=== PATIENT | male | born 1970 | race Caucasian/White ===

== ENCOUNTER → 2021-03-14 12:37 | Outpatient (CLI) | payer OTHER, SELFPAY | PROVIDERS: PCP Nurse Practitioner Family; Visit Provider Nurse Practitioner Family | DX: L08.9 Local infection of the skin and subcutaneous tissue, unspecified (principal) | CPT/HCPCS: 87070; 87077; 87205 ==

== ENCOUNTER 2021-03-14 12:39 | Emergency (ER) | payer OTHER, SELFPAY ==
[2021-03-14 12:53] VITALS: BP 151/81; PULSE 95; RESP 18; TEMP 37; O2SAT 97; BMI 34.2
--- NOTE | 2021-03-14 13:34 | DI.RAD.S_ITS ---
PROCEDURE: XR FINGER RT MIN 2V INDICATIONS: infection right thumb TECHNIQUE: AP hand, 2 views of the 1st digit acquired. COMPARISON: None. FINDINGS: Bones: No acute fractures or dislocations. There is indistinct lucency within the tuft of the 1st distal phalanx with small cortical erosions suggestive of osteomyelitis. There is deformity of the 5th metacarpal consistent with sequelae of an old healed fracture. Hook osteophytes are demonstrated within the 2nd through 4th metacarpals. Soft tissues: There is soft tissue swelling of the 1st digit distally. No suspicious soft tissue calcifications. IMPRESSION: 1. Small bony erosions suggestive of osteomyelitis within the 1st distal phalanx. Dictated by: Kamlesh Lees M.D. on 03/14/2021 at 13:21 Approved by: aKmlesh Lees M.D. on 03/14/2021 at 13:23
--- NOTE | 2021-03-14 13:44 | DI.MRI.S_ITS ---
PROCEDURE: MR HAND RT WO/W CON INDICATIONS: possible thumb abcess TECHNIQUE: Noncontrast coronal T1 spin echo and T2 fast spin echo with fat saturation, axial proton density fast spin echo and T2 fast spin echo with fat saturation, axial T1 spin echo with fat saturation, sagittal T1 spin echo and STIR through the hand and fingers. Post-contrast axial, coronal, and sagittal T1 spin echo through the hand and fingers. COMPARISON: [facility], CR, XR FINGER RT MIN 2V, 03/14/2021, 13:57. FINDINGS: Image quality: Excellent. Bones: There is abnormal bone marrow edema and enhancement within the distal aspect of the 1st distal phalanx with associated mild cortical erosion along the tuft. There is also associated periosteal reaction. The findings are consistent with osteomyelitis. No extension to the interphalangeal joint or joint effusions to suggest septic arthritis. There is a small region of cystic change and mild enhancement within the distal radial aspect of the scaphoid suggestive of an intraosseous ganglion cyst or small bone contusion. No overlying cortical erosions. Remaining visualized osseous structures demonstrate no abnormal edema or enhancement. Soft tissues: There is soft tissue swelling with subcutaneous edema and skin thickening in the 1st digit distally. There is a small peripherally enhancing fluid collection within the distal 1st digit adjacent to the tuft of the distal phalanx. This measures approximately 0.9 x 0.4 x 0.4 cm and abuts the cortex of the distal phalanx. There is extension dorsally to a small loculated component in the nail bed which measures approximately 0.9 cm in transverse dimension by approximately 1.1 cm in longitudinal dimension. Visualized muscles demonstrate normal bulk and internal signal. No intramuscular masses identified. Visualized flexor and extensor tendons appear intact. No abnormal tenosynovial fluid. IMPRESSION: 1. Abnormal bone marrow edema and enhancement within the 1st distal phalanx with cortical erosions distally consistent with osteomyelitis. 2. Soft tissue swelling with edema and enhancement in the 1st digit distally consistent with cellulitis. 3. Loculated peripherally enhancing fluid collection within the 1st digit distally as described consistent with an abscess. There is associated extension along the 1st distal phalanx as well as a dorsal component beneath the nail bed. Dictated by: Kamlesh Lees M.D. on 03/14/2021 at 16:07 Approved by: Kamlesh Lees M.D. on 03/14/2021 at 16:17
--- NOTE | 2021-03-14 13:44 | ED.UPPEXIN ---
HPI - Extremity Injury (Upper) General Chief Complaint: Extremity Injury, Upper Stated Complaint: infection in right thumb, sent from [facility] Time Seen by Provider: 03/14/21 13:42 Source: patient Mode of arrival: Ambulatory Limitations: no limitations History of Present Illness HPI narrative: Patient is a 51-year-old male presents with right thumb pain. He has been treated with 2 rounds of antibiotics since February 26. He was previously on Keflex 500 mg 3 times a day as and switched to doxycycline on March 08. He initially injured it, proximal side of the nail near the cuticle. 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 He has not had any fever or chills. He has actually noticed significant improvement since starting the doxycycline however for the last couple of days it has leveled off. He is quite tender the distal tip. Related Data Home Medications Medication Instructions Recorded Confirmed cephalexin 500 mg capsule 500 mg PO TID 03/08/21 03/08/21 naproxen 500 mg tablet 500 mg PO BID 03/08/21 03/08/21 Previous Rx's Medication Instructions Recorded doxycycline hyclate 100 mg capsule 100 mg PO BID #14 cap 03/09/21 Allergies Allergy/AdvReac Type Severity Reaction Status Date / Time No Known Drug Allergies Allergy Verified 03/14/21 12:53 Review of Systems Review of Systems Narrative: GENERAL: Denies chills,fever HEENT: Denies throat pain RESPIRATORY: Denies dyspnea, cough, wheezing CARDIOVASCULAR: Denies chest pain, palpitations GASTROINTESTINAL: Denies nausea, vomiting MUSCULOSKELETAL: See HPI SKIN: No rash, no laceration, no pruritus NEUROLOGIC: Denies weakness, dizziness, headache, numbness 8 point review of systems is negative except for those stated above and HPI Patient History Social History Smoking Status: Current every day smoker Smoking Status: Current every day smoker alcohol intake frequency: 3 or more drinks per day Substance Use Type: does not use Exam Initial Vital Signs Initial Vital Signs: Vital Signs Temperature 98.6 F 03/14/21 12:53 Pulse Rate 95 H 03/14/21 12:53 Respiratory Rate 18 03/14/21 12:53 Blood Pressure 151/81 H 03/14/21 12:53 Pulse Oximetry 97 03/14/21 12:53 GENERAL: Well-appearing, well-nourished and in no acute distress. CARDIOVASCULAR: peripheral pulses in tact, cap refill <2 sec RESPIRATORY: No respiratory distress, speaks in full sentences without difficulty EXTREMITIES: Normal range of motion, no clubbing or edema. Neurovascularly intact NEUROLOGICAL: Cranial nerves II through XII grossly intact. Normal gait and speech. Right thumb mild swelling at the distal tip. Able to flex and extend no tenderness over thumb, SKIN: Right thumb is slightly swollen extremely tender at the distal tip. Very minimal erythema and fact the redness seems to be improving. However quite tender. Procedures Abscess I/D I&D #1: Side (if applicable): right Local Anesthetic: lidocaine 1% Amount of anesthesia used (mL): 4 Irrigation: No Nerve Block Nerve Block 1: Local Anesthetic: lidocaine 1% Amount of anesthesia used (mL): 4 Side: right Nerve Blocks: digital Procedure Successful: Yes Patient Tolerated Procedure: Well Complications: none Course Orders Ordered: Discontinued Medications Ceftriaxone Sodium 2,000 mg/ (Sodium Chloride) 100 mls @ 200 mls/hr IV NOW ONE Stop: 03/14/21 18:12 Last Infusion: 03/14/21 18:55 Dose: 0 mls/hr Documented by: ROSA ELENA Admin: 03/14/21 18:23 Dose: 200 mls/hr Documented by: ROSA ELENA Vancomycin HCl/Dextrose (Vancomycin) 1,500 mg in 300 mls @ 200 mls/hr IV NOW ONE Stop: 03/14/21 19:40 Last Infusion: 03/14/21 20:30 Dose: 0 mls/hr Documented by: Admin: 03/14/21 18:59 Dose: 200 mls/hr Documented by: ROSA ELENA Lidocaine HCl (Lidocaine 1% (Pf)) 2 ml SUBCUT NOW ONE Stop: 03/14/21 17:40 Last Admin: 03/14/21 18:23 Dose: 2 ml Documented by: ROSA ELENA Vital Signs Vital signs: Vital Signs - 8 hr 03/14/21 12:53 03/14/21 18:45 03/14/21 19:00 Temperature 98.6 F Pulse Rate 95 H 77 72 Respiratory Rate 18 20 Blood Pressure 151/81 H 131/85 Pulse Oximetry 97 97 97 MDM - Extremity Injury (Upper) Lab Data Result diagrams: 03/14/21 13:51 03/14/21 13:51 Labs: Lab Results 03/14/21 03/14/21 03/14/21 Range/Units 13:51 13:51 13:51 WBC 6.4 (4.5-11.0) X10^3/uL RBC 4.33 L (4.5-5.9) X10^6/uL Hgb 14.8 (13.5-17.5) g/dL Hct 41.6 (41-53) % MCV 96.2 (80-100) fL MCH 34.1 H (26-34) PG MCHC 35.5 (30-36) % RDW 12.7 (11.6-14.8) % Plt Count 237 (150-400) X10^3/uL Neut % (Auto) 62.8 (50-75) % Lymph % (Auto) 24.7 L (25-40) % [place] % (Auto) 8.2 (3-14) % Eos % (Auto) 3.3 (2-4) % Baso % (Auto) 1.0 (0-2) % Neut # (Auto) 4000 (5196-2605) /uL Lymph # (Auto) 1600 (6760-4745) /uL [place] # (Auto) 500 (0-900) /uL Eos # (Auto) 200 (0-450) /uL Baso # (Auto) 100 (0-100) /uL ESR (0-15) MM/HR PT 11.3 (10.1-12.7) SECONDS INR 1.0 (0.9-1.3) APTT 31 (26.4-36.2) SECONDS Sodium 138 (137-145) mmol/L Potassium 4.0 (3.4-5.1) mmol/L Chloride 105 (98-107) mmol/L Carbon Dioxide 24 (22-32) mmol/L BUN 15 (9-20) mg/dL Creatinine 1.00 (0.66-1.25) mg/dL Estimated GFR > 60.0 (>60) mL/min BUN/Creatinine Ratio 15.0 (6-22) Glucose 90 (70-100) mg/dL Lactate (0.7-2.1) mmol/L Calcium 9.3 (8.4-10.2) mg/dL Total Bilirubin 0.6 (0.2-1.3) mg/dL AST 26 (17-59) IU/L ALT 17 (<50) IU/L Alkaline Phosphatase 61 (38-126) U/L C-Reactive Protein (<1.0) mg/dL Total Protein 7.5 (6.3-8.2) g/dL Albumin 4.5 (3.5-5.0) g/dL Globulin 3.0 (1.7-4.1) g/dL Albumin/Globulin Ratio 1.5 (1.0-2.8) Lipase 35 (23-300) U/L Procalcitonin 0.04 (<0.5) ng/mL 03/14/21 03/14/21 03/14/21 Range/Units 13:51 13:51 13:51 WBC (4.5-11.0) X10^3/uL RBC (4.5-5.9) X10^6/uL Hgb (13.5-17.5) g/dL Hct (41-53) % MCV (80-100) fL MCH (26-34) PG MCHC (30-36) % RDW (11.6-14.8) % Plt Count (150-400) X10^3/uL Neut % (Auto) (50-75) % Lymph % (Auto) (25-40) % [place] % (Auto) (3-14) % Eos % (Auto) (2-4) % Baso % (Auto) (0-2) % Neut # (Auto) (8487-6335) /uL Lymph # (Auto) (1086-9005) /uL [place] # (Auto) (0-900) /uL Eos # (Auto) (0-450) /uL Baso # (Auto) (0-100) /uL ESR 1 (0-15) MM/HR PT (10.1-12.7) SECONDS INR (0.9-1.3) APTT (26.4-36.2) SECONDS Sodium (137-145) mmol/L Potassium (3.4-5.1) mmol/L Chloride (98-107) mmol/L Carbon Dioxide (22-32) mmol/L BUN (9-20) mg/dL Creatinine (0.66-1.25) mg/dL Estimated GFR (>60) mL/min BUN/Creatinine Ratio (6-22) Glucose (70-100) mg/dL Lactate 0.7 (0.7-2.1) mmol/L Calcium (8.4-10.2) mg/dL Total Bilirubin (0.2-1.3) mg/dL AST (17-59) IU/L ALT (<50) IU/L Alkaline Phosphatase (38-126) U/L C-Reactive Protein < 0.5 (<1.0) mg/dL Total Protein (6.3-8.2) g/dL Albumin (3.5-5.0) g/dL Globulin (1.7-4.1) g/dL Albumin/Globulin Ratio (1.0-2.8) Lipase (23-300) U/L Procalcitonin (<0.5) ng/mL Imaging Data Extremity x-ray #1: Radiologist's Impression: PROCEDURE:? XR FINGER RT MIN 2V ? INDICATIONS:? infection right thumb ? TECHNIQUE:? AP hand, 2 views of the 1st digit acquired.? ? COMPARISON:? None. ? FINDINGS:? ? Bones:? No acute fractures or dislocations.? There is indistinct lucency within the tuft of the 1st distal phalanx with small cortical erosions suggestive of osteomyelitis.? There is deformity of the 5th metacarpal consistent with sequelae of an old healed fracture.? Hook osteophytes are demonstrated within the 2nd through 4th metacarpals. ? Soft tissues:? There is soft tissue swelling of the 1st digit distally.? No suspicious soft tissue calcifications.? ? IMPRESSION:? ? 1. Small bony erosions suggestive of osteomyelitis within the 1st distal phalanx.? ? ? Dictated by: Kamlesh Lees M.D. on 03/14/2021 at 13:21 ? ? Approved by: Kamlesh Lees M.D. on 03/14/2021 at 13:23 ? MR hand: Radiologist's Impression: PROCEDURE:? MR HAND RT WO/W CON ? INDICATIONS:? possible thumb abcess ? TECHNIQUE:? Noncontrast coronal T1 spin echo and T2 fast spin echo with fat saturation, axial proton density fast spin echo and T2 fast spin echo with fat saturation, axial T1 spin echo with fat saturation, sagittal T1 spin echo and STIR through the hand and fingers.? Post-contrast axial, coronal, and sagittal T1 spin echo through the hand and fingers.? ? COMPARISON:? [facility], CR, XR FINGER RT MIN 2V, 03/14/2021, 13:57. ? FINDINGS:? Image quality:? Excellent.? ? Bones:? There is abnormal bone marrow edema and enhancement within the distal aspect of the 1st distal phalanx with associated mild cortical erosion along the tuft.? There is also associated periosteal reaction.? The findings are consistent with osteomyelitis.? No extension to the interphalangeal joint or joint effusions to suggest septic arthritis.? There is a small region of cystic change and mild enhancement within the distal radial aspect of the scaphoid suggestive of an intraosseous ganglion cyst or small bone contusion.? No overlying cortical erosions.? Remaining visualized osseous structures demonstrate no abnormal edema or enhancement. ? Soft tissues:? There is soft tissue swelling with subcutaneous edema and skin thickening in the 1st digit distally.? There is a small peripherally enhancing fluid collection within the distal 1st digit adjacent to the tuft of the distal phalanx.? This measures approximately 0.9 x 0.4 x 0.4 cm and abuts the cortex of the distal phalanx.? There is extension dorsally to a small loculated component in the nail bed which measures approximately 0.9 cm in transverse dimension by approximately 1.1 cm in longitudinal dimension.? Visualized muscles demonstrate normal bulk and internal signal.? No intramuscular masses identified.? Visualized flexor and extensor tendons appear intact.? No abnormal tenosynovial fluid.? ? IMPRESSION:? ? 1. Abnormal bone marrow edema and enhancement within the 1st distal phalanx with cortical erosions distally consistent with osteomyelitis. ? 2. Soft tissue swelling with edema and enhancement in the 1st digit distally consistent with cellulitis. ? 3. Loculated peripherally enhancing fluid collection within the 1st digit distally as described consistent with an abscess.? There is associated extension along the 1st distal phalanx as well as a dorsal component beneath the nail bed.? ? ? Dictated by: Kamlesh Lees M.D. on 03/14/2021 at 16:07 ? ? Approved by: Kamlesh Lees M.D. on 03/14/2021 at 16:17 MDM Narrative Medical decision making narrative: Patient's blood work is overall reassuring. His exam he is tender very distal tip but no significant erythema no decreased range of motion. MRI does show osteomyelitis and very small fluid collection. She 1729 Dr. [facility] has been updated on MRI results with truncal clinical symptoms. At this time he states patient needs IV antibiotics and infectious disease consult. 1809-Dr. Ballard patient's PCP has been updated on patient's symptoms and test results. At this time she agrees to help arrange outpatient follow-up. He overall does not meet admission criteria and appears well. He is given vancomycin and Rocephin in the emergency department until cultures have returned. The culture however is from the nail bed not from the distal tip. There was no fluid or drainage from the distal tip. However his pain did improve. Patient does still have 3 days of doxycycline Discharge Plan Departure Patient Disposition: Home Clinical Impression: Abscess, Osteomyelitis Activity Restrictions/Additional Instructions: *You have been diagnosed with osteomyelitis *What to do: You will need IV antibiotics for about [address] Ballard will help arrange this for you through the infusion clinic. Until then please continue her doxycycline. She should be in touch with you on Tuesday *Continue to take medications as directed *Follow up with your primary care provider in 2-3 days *Return to ER if you should have increasing redness, fever, pain or any new, worsening or concerning symptoms Prescriptions: No Action naproxen 500 mg tablet 500 mg PO BID 0RF cephalexin 500 mg capsule 500 mg PO TID 0RF doxycycline hyclate 100 mg capsule 100 mg PO BID Qty: 14 0RF Referrals: Dionna Oh ARNP [Primary Care Provider] - Bre Ballard MD [Physician] -
[2021-03-14 14:04] LABS: Add Manual Diff / Slide Review NO; Basophils Absolute Auto 100 /uL (0-100); Eosinophils Absolute Auto 200 /uL (0-450); Eosinophils Percent Auto 3.3 % (2-4); Hematocrit 41.6 % (41-53); Hemoglobin 14.8 g/dL (13.5-17.5); Lymphocytes Absolute Auto 1600 /uL (1100-4500); Lymphocytes Percent Auto 24.7 % (25-40); Mean Corpuscular HGB Conc 35.5 % (30-36); Mean Corpuscular Hemoglobin 34.1 PG (26-34); Mean Corpuscular Volume 96.2 fL (80-100); Monocytes Absolute Auto 500 /uL (0-900); Monocytes Percent Auto 8.2 % (3-14); Neutrophils Absolute Auto 4000 /uL (1500-7000); Neutrophils Percent Auto 62.8 % (50-75); Platelet Count 237 X10^3/uL (150-400); Red Blood Cell Count 4.33 X10^6/uL (4.5-5.9); Red Cell Distribution Width 12.7 % (11.6-14.8); White Blood Cell Count 6.4 X10^3/uL (4.5-11.0)
[2021-03-14 14:15] LABS: Prothrombin Time 11.3 SECONDS (10.1-12.7)
[2021-03-14 14:17] LABS: PTT Partial Thromboplastin Tim 31 SECONDS (26.4-36.2)
[2021-03-14 14:19] LABS: Alanine Aminotransferase 17 IU/L (<50); Albumin 4.5 g/dL (3.5-5.0); Albumin Globulin Ratio 1.5 (1.0-2.8); Alkaline Phosphatase 61 U/L (38-126); Aspartate Aminotransferase 26 IU/L (17-59); Bilirubin Total 0.6 mg/dL (0.2-1.3); Blood Urea Nitrogen 15 mg/dL (9-20); Calcium 9.3 mg/dL (8.4-10.2); Carbon Dioxide 24 mmol/L (22-32); Chloride 105 mmol/L (98-107); Estimated Glomerular Filt Rate > 60.0 mL/min (>60); Glucose 90 mg/dL (70-100); HEMOLYSIS < 15 (0-50); Lipase 35 U/L (23-300); Sodium 138 mmol/L (137-145); Total Protein 7.5 g/dL (6.3-8.2)
[2021-03-14 14:20] LABS: Lactate (Lactic Acid) 0.7 mmol/L (0.7-2.1)
[2021-03-14 14:36] LABS: Procalcitonin 0.04 ng/mL (<0.5)
[2021-03-14 15:02] LABS: Erythrocyte Sedimentation Rate 1 MM/HR (0-15)
[2021-03-14 15:08] LABS: C-Reactive Protein Quant < 0.5 mg/dL (<1.0)
[2021-03-14] MEDS: LIDOCAINE 1% (PF) 2 ML SUBCUT (18:23)
[2021-03-14] MEDS: cefTRIAXone 2,000 MG in SODIUM CHLORIDE 0.9% 100 ML 200 ML IV (18:23)
[2021-03-14 18:45] VITALS: PULSE 77; O2SAT 97
[2021-03-14] MEDS: VANCOMYCIN 1,500 MG/300 ML PIGGYBACK 200 MG IV (18:59)
[2021-03-14 19:00] VITALS: BP 131/85; PULSE 72; RESP 20; O2SAT 97
[2021-03-14 19:30] VITALS: BP 133/80; PULSE 72; O2SAT 97
[2021-03-14 20:00] VITALS: BP 130/74; PULSE 75; O2SAT 96
== END 2021-03-14 20:37 | disposition home or self-care (01) ==
PROVIDERS: Emergency Provider Emergency Medicine; PCP Nurse Practitioner Family
DX: L02.511 Cutaneous abscess of right hand (principal); M86.9 Osteomyelitis, unspecified; L08.9 Local infection of the skin and subcutaneous tissue, unspecified
CPT/HCPCS: 10060; 36415; 64450; 73140; 73220; 80053; 83605; 83690; 84145; 85025; 85610; 85651; 85730; 86140; 87040; 87070; 87075; 87077; 87186; 87205; 96365; 96366; 96367; 99284; J0696

== ENCOUNTER → 2021-03-18 09:14 | Outpatient (CLI) | payer OTHER, SELFPAY ==
--- NOTE | 2021-03-18 | DI.RAD.S_ITS ---
PROCEDURE: FL GUIDED PICC PLACEMENT INDICATIONS: Osteomyelitis, unspecified COMPARISON: None. FINDINGS: PICC was placed by the intravenous therapy team from the left side. Fluoroscopic spot film demonstrates the tip of PICC projecting to the area of distal SVC IMPRESSION: Tip of PICC projects to the area of distal SVC Dictated by: Ritu Alfaro MD, PhD on 03/18/2021 at 11:10 Approved by: Ritu Alfaro MD, PhD on 03/18/2021 at 11:10
== END ==
PROVIDERS: PCP Student in an Organized Health Care Education/Training Program; Referring Provider Student in an Organized Health Care Education/Training Program; Visit Provider Student in an Organized Health Care Education/Training Program
DX: M86.9 Osteomyelitis, unspecified (principal); Z45.2 Encounter for adjustment and management of vascular access device
CPT/HCPCS: 36573

== ENCOUNTER → 2022-11-15 17:53 | Outpatient (CLI) | payer OTHER, SELFPAY ==
--- NOTE | 2022-11-15 | DI.RAD.S_ITS ---
PROCEDURE: XR FOOT LT MIN 3V INDICATIONS: foot pain TECHNIQUE: 3 views of the foot were acquired. COMPARISON: , , FOOT 3V LEFT, 05/01/2016, 12:27. FINDINGS: Bones: No fractures or dislocations. No suspicious bony lesions. Healed fractures of 3rd and 4th proximal phalanges. Hallux valgus. Plantar calcaneal enthesophyte. Soft tissues: No tibiotalar joint effusion. Achilles tendon appears normal. IMPRESSION: Hallux valgus. Dictated by: Lucian Andrade M.D. on 11/16/2022 at 14:04 Approved by: Lucian Andrade M.D. on 11/16/2022 at 14:04
--- NOTE | 2022-11-15 | DI.RAD.S_ITS ---
PROCEDURE: XR ANKLE LT MIN 3V INDICATIONS: foot pain TECHNIQUE: 3 views of the ankle were acquired. COMPARISON: None. FINDINGS: Bones: No fractures or dislocations. Ankle mortise is normally aligned. No suspicious bony lesions. Calcaneal enthesophyte. Soft tissues: Small tibiotalar joint effusion. Achilles tendon appears normal. IMPRESSION: Plantar calcaneal enthesophyte. Small ankle joint effusion. Dictated by: Lucian Andrade M.D. on 11/16/2022 at 14:03 Approved by: Lucian Andrade M.D. on 11/16/2022 at 14:04
--- NOTE | 2022-11-15 | DI.RAD.S_ITS ---
PROCEDURE: XR LUMBAR SPINE 2-3V INDICATIONS: Back pain TECHNIQUE: 3 views of the lumbar spine were acquired. COMPARISON: None. FINDINGS: Bones: 5 [id number] vertebrae are present. There is normal bony alignment. Degenerative endplate changes and loss of disc height throughout lumbar spine is seen more notably at L3-4 and L4-5 levels. No vertebral body compression fractures. No suspicious bony lesions. Soft tissues: Overlying bowel gas pattern is normal. No suspicious soft tissue calcifications. IMPRESSION: Degenerative disc disease throughout lumbar spine. No acute compression fracture or spondylolisthesis. Dictated by: Cruz Mcmanus M.D. on 11/16/2022 at 12:12 Approved by: Cruz Mcmanus M.D. on 11/16/2022 at 12:12
== END ==
LOC: RAD 17:55
PROVIDERS: PCP Student in an Organized Health Care Education/Training Program; Referring Provider Family Medicine; Visit Provider Family Medicine
DX: M51.16 Intervertebral disc disorders with radiculopathy, lumbar region (principal); M77.32 Calcaneal spur, left foot; M20.12 Hallux valgus (acquired), left foot; M25.472 Effusion, left ankle; M79.672 Pain in left foot; G89.29 Other chronic pain
CPT/HCPCS: 72100; 73610; 73630

== ENCOUNTER → 2022-11-24 07:14 | Outpatient (CLI) | payer OTHER, SELFPAY ==
--- NOTE | 2022-11-24 | DI.MRI.S_ITS ---
PROCEDURE: MR ANKLE LT WO CON INDICATIONS: Pain in left foot TECHNIQUE: Noncontrast sagittal T1 spin echo and T2 fast spin echo with fat saturation, axial proton density fast spin echo and T2 fast spin echo with fat saturation, coronal T1 spin echo and T2 fast spin echo with fat saturation through the ankle/hindfoot. COMPARISON: [facility], CR, XR ANKLE LT MIN 3V, 11/15/2022, 18:00. FINDINGS: Image quality: Excellent. Bones and joints: Osseous edema is seen within the included portion of the 3rd metatarsal. Increased signal seen within the 5th metatarsal that may be related to in imaging is fat suppression. No hindfoot coalitions. Small chronic osteochondral lesion at the medial talar dome measuring approximately 3 x 4 x 5 mm. Mild subchondral cystic changes are seen without disruption of the subchondral plate or a loose osteochondral fragment. Medial structures: The deep and superficial layers of the deltoid ligament appear intact. The spring ligament components are intact. The posterior tibialis, flexor digitorum longus, and flexor hallucis longus tendons are intact. A lobular ganglion cyst is seen at the posterior medial aspect of the ankle deep to the tarsal tunnel measuring 26 x 7 x 12 mm. The lesion is located adjacent to the posterior tibial neurovascular bundle without definite mass effect. Lateral structures: Remote prior low-grade sprains of the anterior talofibular ligament and the calcaneofibular ligament. The posterior talofibular ligament is intact. The anterior and posterior tibiofibular ligaments appear intact. The peroneus longus and brevis tendons demonstrate mild tenosynovitis. Ganglion cyst extending superiorly from the lateral sinus tarsi measures up to 21 x 7 x 18 mm. Anterior structures: The tibialis anterior, extensor hallucis longus, and extensor digitorum longus tendons appear intact. The dorsal talonavicular ligament appears intact. Posterior and plantar structures: Achilles tendon is intact. There is thickening the proximal plantar fascia with focal fluid signal intensity at the origin that is suspicious for partial intrasubstance tearing. Mild surrounding osseous and soft tissue edema. No calcaneal fracture is seen. No abductor digiti quinti muscle atrophy to suggest Mcdermott neuropathy. IMPRESSION: 1. Osseous edema is seen within the proximal 3rd metatarsal, possibly representing an osseous contusion or acute stress reaction, not completely imaged on this exam. 2. Small chronic osteochondral lesion at the medial talar dome measuring up to 5 mm with subchondral cystic changes. No disruption of the subchondral plate or loose osteochondral fragment. 3. Remote prior low-grade sprains of the anterior talofibular ligament and calcaneofibular ligament. 4. Mild peroneus brevis and longus tenosynovitis. 5. Low-grade partial tearing of the proximal plantar fascia at the origin superimposed on chronic fasciitis. 6. Lobular ganglion cyst at the posterior medial aspect of the ankle measuring up to 26 mm, located deep to the posterior tibial nerve without definite mass effect. Additional ganglion cyst extending superiorly from the lateral sinus tarsi measures up to 21 mm. Approved by: Andrew Bell M.D. on 11/24/2022 at 11:55
== END ==
PROVIDERS: PCP Family Medicine; Referring Provider Family Medicine; Visit Provider Family Medicine
DX: S93.492A Sprain of other ligament of left ankle, initial encounter (principal); S93.412A Sprain of calcaneofibular ligament of left ankle, initial encounter; M93.972 Osteochondropathy, unspecified, left ankle and foot; M65.872 Other synovitis and tenosynovitis, left ankle and foot; M72.2 Plantar fascial fibromatosis; M67.472 Ganglion, left ankle and foot; M79.672 Pain in left foot; R60.0 Localized edema
CPT/HCPCS: 73721

== ENCOUNTER → 2024-10-17 10:09 | Outpatient (CLI) | payer OTHER, SELFPAY ==
--- NOTE | 2024-10-17 10:11 | DI.RAD.S_ITS ---
PROCEDURE: XR KNEE LT 3V INDICATIONS: KNEE PAIN TECHNIQUE: 3 views of the knee were acquired. COMPARISON: None. FINDINGS: Bones: There are no osseous abnormalities. Joints: Severe patellofemoral and mild lateral tibial femoral degenerative change noted. There is mild lateral subluxation of the patella. Small effusion noted. Lateral subluxation of the patella Soft tissues: Calcification at the patellar tendon insertion on the tibial tuberosity may be stigmata of old trauma or inflammation IMPRESSION: Degeneration. Small effusion Lateral patellar subluxation . Dictated by: Antonio Reyna M.D. on 10/18/2024 at 11:46 Approved by: Antonio Reyna M.D. on 10/18/2024 at 11:48
== END ==
LOC: RAD 10:10
PROVIDERS: PCP Family Medicine; Referring Provider Family Medicine; Visit Provider Family Medicine
DX: S83.012A Lateral subluxation of left patella, initial encounter (principal); M25.462 Effusion, left knee; M25.562 Pain in left knee
CPT/HCPCS: 73562